=== PATIENT | male | born 1955 | race African-American/Black ===

== ENCOUNTER 2022-05-29 04:46 | Emergency (ER) | payer OTHER, MEDICAID ==
[~2022-05-29] VITALS: Ht 180.3 cm; Wt 79.8 kg
[2022-05-29 04:56] VITALS: BP 203/129
--- NOTE | 2022-05-29 05:03 | NUR ---
PT TAKEN TO ER BED 6
--- NOTE | 2022-05-29 05:39 | NUR ---
PT WALKED IN C/O 8/10 TESTICLE PAIN S/P HERNIA [id number]. PT ALSO REPORTS CONSTIPATION.
--- NOTE | 2022-05-29 06:17 | NUR ---
DR CHRISTIANSEN EXAMINING PT
[2022-05-29] MEDS ORDERED: MORPHINE SULFATE 4 MG/ML SYR IVP ONE (06:30)
--- NOTE | 2022-05-29 07:11 | NUR ---
REPORT GIVEN TO EUGENIO MOREL
--- NOTE | 2022-05-29 07:17 | NUR ---
PT DOING WELL, TESTICULAR PAIN 11/12, SR ON CM, O2 SAT 98%, SR UP TIMES 2. ELEV BP, HAS HX OF HTN, AWAITS DISPO
[2022-05-29 07:34] LABS: EOSINOPHILS # (AUTO) 0.1 K/uL (0-0.4); EOSINOPHILS % (AUTO) 1.4 % (0.0-4.0); HEMATOCRIT 38.2 % (36-52); HEMOGLOBIN 12.6 g/dL (12.0-18.0); LYMPHOCYTES % (AUTO) 21.7 % (20.5-51.1); MEAN CORPUSCULAR HEMOGLOBIN 29 pg (27-31); MEAN CORPUSCULAR HGB CONC 33 g/dL (33-37); MEAN CORPUSCULAR VOLUME 88.1 fL (80-94); MONOCYTES # (AUTO) 0.4 K/uL (0.8-1.0); MONOCYTES % (AUTO) 8.6 % (1.7-9.3); NEUTROPHILS # (AUTO) 3.3 K/uL (1.8-7.7); NEUTROPHILS % (AUTO) 67.3 % (42.2-75.2); PLATELET COUNT (AUTO) 252 K/uL (140-450); RED BLOOD CELL COUNT(AUTO) 4.33 MIL/uL (4.20-6.10); RED CELL DISTRIBUTION WIDTH 16.2 % (11.6-13.7); WHITE BLOOD COUNT (AUTO) 4.8 K/uL (4.8-10.8)
[2022-05-29 07:38] LABS: ALBUMIN 3.9 g/dL (3.4-5.0); ANION GAP 14.6 (8-16); CARBON DIOXIDE 29.1 mmol/L (21-32); POTASSIUM 3.7 mmol/L (3.5-5.1); TOTAL BILIRUBIN 0.7 mg/dL (0.0-1.0)
[2022-05-29 08:58] VITALS: BP 165/76
[2022-05-29] MEDS ORDERED: LID5T TP ×2 (09:00→09:03)
--- NOTE | 2022-05-29 09:00 | NUR ---
PT DISCHARGED HOME, AMBULATORY AND STEADY GAIT, IVSL DC'D, PT VERBALIZES INSTRUCTIONS GIVEN IN [facility], PT TO FOLLOW UP W PMD IN 2-3 DAYS, DENIES ANY FURTHER QUESTIONS
== END 2022-05-29 08:58 | disposition home or self-care (01) ==
LOC: MED 04:46
DX: K40.90 Unilateral inguinal hernia, without obstruction or gangrene, not specified as recurrent (principal); M84.48XA Pathological fracture, other site, initial encounter for fracture; R16.0 Hepatomegaly, not elsewhere classified; Z88.8 Allergy status to other drugs, medicaments and biological substances; Z72.89 Other problems related to lifestyle; Z98.890 Other specified postprocedural states
CPT/HCPCS: 36415; 74176; 80053; 81002; 83605; 85025; 96374; 99284; J2270

== ENCOUNTER 2022-08-16 17:06 | Emergency (ER) | payer OTHER, MEDICAID ==
[~2022-08-16] VITALS: Ht 180.3 cm; Wt 77.1 kg
[~2022-08-16 17:06] MED LIST: LID5T TP
[2022-08-16 18:02] VITALS: BP 172/113
[2022-08-16 19:43] LABS: BASOPHILS % (AUTO) 0.8 % (0.0-2.0); EOSINOPHILS % (AUTO) 0.4 % (0.0-4.0); HEMATOCRIT 40.6 % (36-52); HEMOGLOBIN 13.3 g/dL (12.0-18.0); LYMPHOCYTES # (AUTO) 1.1 K/uL (2.0-11.5); LYMPHOCYTES % (AUTO) 17.3 % (20.5-51.1); MEAN CORPUSCULAR HEMOGLOBIN 29 pg (27-31); MEAN CORPUSCULAR HGB CONC 33 g/dL (33-37); MEAN CORPUSCULAR VOLUME 88.6 fL (80-94); MONOCYTES # (AUTO) 0.4 K/uL (0.8-1.0); MONOCYTES % (AUTO) 6.1 % (1.7-9.3); NEUTROPHILS # (AUTO) 4.8 K/uL (1.8-7.7); NEUTROPHILS % (AUTO) 75.4 % (42.2-75.2); PLATELET COUNT (AUTO) 253 K/uL (140-450); RED BLOOD CELL COUNT(AUTO) 4.59 MIL/uL (4.20-6.10); RED CELL DISTRIBUTION WIDTH 15.6 % (11.6-13.7); WHITE BLOOD COUNT (AUTO) 6.4 K/uL (4.8-10.8)
[2022-08-16 20:00] LABS: ALBUMIN 4.3 g/dL (3.4-5.0); CARBON DIOXIDE 31.3 mmol/L (21-32); POTASSIUM 4.3 mmol/L (3.5-5.1); TOTAL BILIRUBIN 0.5 mg/dL (0.0-1.0)
--- NOTE | 2022-08-16 20:50 | NUR ---
PT TO 12
[2022-08-16 21:14] LABS: APPEARANCE,URINE CLEAR (CLEAR); BILIRUBIN,URINE NEGATIVE (NEGATIVE); BLOOD, URINE NEGATIVE (NEGATIVE); COLOR,URINE YELLOW (YELLOW); LEUKOCYTE ESTERASE ,URINE NEGATIVE (NEGATIVE); NITRITE, URINE NEGATIVE (NEGATIVE); PH,URINE 6.5 (5.0-9.0); UGLUCOSE NEGATIVE (NEGATIVE)
[2022-08-16] MEDS ORDERED: MORPHINE SULFATE 4 MG/ML SYR IM ONE (21:20)
--- NOTE | 2022-08-16 21:41 | NUR ---
Patient being evaluated by physician at bedside.
[2022-08-16] MEDS ORDERED: ACET-10509 PO (22:08)
[2022-08-16] MEDS ORDERED: IBUP-2218 PO (22:08)
--- NOTE | 2022-08-16 22:12 | NUR ---
Patient discharged with v/s stable. Written and verbal after care instructions given and explained. Patient alert, oriented and verbalized understanding of instructions. Ambulatory with steady gait. All questions addressed prior to discharge. ID band removed. Patient advised to follow up with PMD. Rx of TYLENOL EXTRA STRENGTH IBUPROFEN given.
== END 2022-08-16 22:15 | disposition home or self-care (01) ==
LOC: MED 17:06
DX: K40.90 Unilateral inguinal hernia, without obstruction or gangrene, not specified as recurrent (principal); R93.5 Abnormal findings on diagnostic imaging of other abdominal regions, including retroperitoneum; K76.89 Other specified diseases of liver; I10 Essential (primary) hypertension; Z79.899 Other long term (current) drug therapy; Z88.8 Allergy status to other drugs, medicaments and biological substances
CPT/HCPCS: 36415; 74176; 80053; 81003; 83690; 85025; 96372; 99284; J2270

== ENCOUNTER 2022-09-21 15:25 | Emergency (ER) | payer OTHER, MEDICAID ==
[~2022-09-21] VITALS: Ht 177.8 cm; Wt 68.0 kg
[~2022-09-21 15:25] MED LIST changes: +ACET-10509 PO; +IBUP-2218 PO
[2022-09-21 15:41] VITALS: BP 176/107
[2022-09-21 16:34] LABS: BASOPHILS % (AUTO) 0.7 % (0.0-2.0); EOSINOPHILS % (AUTO) 0.2 % (0.0-4.0); HEMATOCRIT 37.2 % (36-52); HEMOGLOBIN 12.5 g/dL (12.0-18.0); LYMPHOCYTES # (AUTO) 0.8 K/uL (2.0-11.5); LYMPHOCYTES % (AUTO) 12.7 % (20.5-51.1); MEAN CORPUSCULAR HEMOGLOBIN 29 pg (27-31); MEAN CORPUSCULAR HGB CONC 34 g/dL (33-37); MEAN CORPUSCULAR VOLUME 85.8 fL (80-94); MONOCYTES # (AUTO) 0.4 K/uL (0.8-1.0); MONOCYTES % (AUTO) 6.6 % (1.7-9.3); NEUTROPHILS # (AUTO) 5.3 K/uL (1.8-7.7); NEUTROPHILS % (AUTO) 79.8 % (42.2-75.2); PLATELET COUNT (AUTO) 231 K/uL (140-450); RED BLOOD CELL COUNT(AUTO) 4.34 MIL/uL (4.20-6.10); RED CELL DISTRIBUTION WIDTH 15.2 % (11.6-13.7); WHITE BLOOD COUNT (AUTO) 6.7 K/uL (4.8-10.8)
--- NOTE | 2022-09-21 16:40 | NUR ---
PATIENT AMBULATED TO BED 11 WITH STEADY/EVEN GAIT.
--- NOTE | 2022-09-21 16:44 | NUR ---
UA, covid/influenza swabs collected, walked to lab and handed to CPT Tamera.
--- NOTE | 2022-09-21 16:46 | NUR ---
67/M C/O BODY ACHES AND INTERMITTENT FEVERS X1 WEEK. PATIENT A&OX4, AMBULATORY, STATES RUNNY NOSE, COUGHING, SUBJECTIVE FEVER AND BODY ACHES 2-3 DAYS WITH GENERALIZED WEAKNESS. PT STATES SOB.DENIES TAKING MEDS FOR SYMPTOMS. DENIES RECENT SICK CONTACTS. BP IN TRIAGE 176/107, DENIES HEADACHES, DIZZINESS, VISION CHANGES. 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 BED LOCKED IN LOWEST POSITION, SIDE RAILS X 1. PMH: HTN MEDS: BENAZEPRIL ALLERGIES: DOXYCYCLINE
--- NOTE | 2022-09-21 16:58 | NUR ---
REPEAT BP 187/104. DR. CALZADA MADE AWARE.
[2022-09-21 17:00] LABS: APPEARANCE,URINE CLEAR (CLEAR); BILIRUBIN,URINE NEGATIVE (NEGATIVE); BLOOD, URINE 1+ (NEGATIVE); COLOR,URINE YELLOW (YELLOW); LEUKOCYTE ESTERASE ,URINE NEGATIVE (NEGATIVE); NITRITE, URINE NEGATIVE (NEGATIVE); PH,URINE 6.5 (5.0-9.0); UGLUCOSE NEGATIVE (NEGATIVE)
[2022-09-21 17:00] LABS: ALBUMIN 4.7 g/dL (3.4-5.0); ANION GAP 11.4 (8-16); CARBON DIOXIDE 29.6 mmol/L (21-32); TOTAL BILIRUBIN 0.8 mg/dL (0.0-1.0)
[2022-09-21 17:12] LABS: OTHER CASTS, URINE None Seen /LPF (None Seen); RBC,URINE 0-5 /HPF (0-5); WBC,URINE 0-5 /HPF (0-5)
[2022-09-21 19:10] VITALS: BP 176/96
[2022-09-21] MEDS ORDERED: ACET-10509 PO (19:20)
--- NOTE | 2022-09-21 19:23 | NUR ---
Report and transfer of care endorsed to ADRIEL John.
--- NOTE | 2022-09-21 19:32 | NUR ---
Patient discharged with v/s stable. Written and verbal after care instructions given and explained for Inguinal Hernia (Adult), Upper Respiratory Infection (Adult), Hypertension (Adult). Patient alert, oriented and verbalized understanding of instructions. Ambulatory with steady gait. All questions addressed prior to discharge. ID band removed. Patient advised to follow up with PMD. Rx of Acetaminophen given. Patient educated on indication of medication including possible reaction and side effects. Opportunity to ask questions provided and answered. Copies of RAD, Covid/influenza swabs, blood work, UA given to patient.
== END 2022-09-21 19:32 | disposition home or self-care (01) ==
LOC: MED 15:25
DX: J06.9 Acute upper respiratory infection, unspecified (principal); K40.90 Unilateral inguinal hernia, without obstruction or gangrene, not specified as recurrent; I10 Essential (primary) hypertension; Z20.822 Contact with and (suspected) exposure to COVID-19; Z79.899 Other long term (current) drug therapy; Z79.1 Long term (current) use of non-steroidal anti-inflammatories (NSAID); Z88.1 Allergy status to other antibiotic agents
CPT/HCPCS: 36415; 71045; 80053; 81001; 83880; 84484; 85025; 87426; 87804; 93005; 99285; Q0092

== ENCOUNTER 2023-02-07 13:12 | Emergency (ER) | payer OTHER, MEDICAID ==
[~2023-02-07] VITALS: Ht 180.3 cm; Wt 68.0 kg
[2023-02-07 13:14] VITALS: BP 174/92
--- NOTE | 2023-02-07 14:27 | NUR ---
68YO M C/O BRUNO NOT DRAINING AND HAS STRONG SMELL, MILD LT SIDE FLANK PAIN, BRUNO INCERTED 1 WK AGO IN [place], PT DENIES FEVER, CHILLS, FLU SYMPTOMS, CONGESTION, COUGH, N,V,D,C. SAFETY MAINTAINED. NAD. HX: HTN
[2023-02-07 14:43] LABS: APPEARANCE,URINE CLOUDY (CLEAR); BILIRUBIN,URINE NEGATIVE (NEGATIVE); BLOOD, URINE 3+ (NEGATIVE); COLOR,URINE BROWN (YELLOW); LEUKOCYTE ESTERASE ,URINE 1+ (NEGATIVE); NITRITE, URINE POSITIVE (NEGATIVE); UGLUCOSE NEGATIVE (NEGATIVE)
[2023-02-07 14:54] LABS: RBC,URINE 20-50 /HPF (0-5)
--- NOTE | 2023-02-07 14:57 | NUR ---
CATH TUBING CLOGGED, LEG BAG CHANGED, URINE DARK YELLOW
[2023-02-07] MEDS ORDERED: cefTRIAXone 500 MG in LIDOCAINE MPF 1% 1 ML IM ONE (15:00)
[2023-02-07] MEDS ORDERED: cefTRIAXone 500 MG VIAL ONE (15:33)
[2023-02-07] MEDS ORDERED: LIDOCAINE MPF 1% 5 ML ONE (15:33)
--- NOTE | 2023-02-07 16:10 | NUR ---
US AT BEDSIDE
[2023-02-07] MEDS ORDERED: CEPH500C16 PO (16:45)
[2023-02-07 17:01] VITALS: BP 168/86
== END 2023-02-07 17:01 | disposition home or self-care (01) ==
LOC: MED 13:12
DX: N12 Tubulo-interstitial nephritis, not specified as acute or chronic (principal); N40.0 Benign prostatic hyperplasia without lower urinary tract symptoms; I10 Essential (primary) hypertension; Z79.899 Other long term (current) drug therapy; Z88.1 Allergy status to other antibiotic agents
CPT/HCPCS: 76770; 81001; 87086; 96372; 99285; J0696; J2001; Q0092

== ENCOUNTER 2023-02-15 07:51 | Emergency (ER) | payer OTHER, MEDICAID ==
[~2023-02-15] VITALS: Ht 180.3 cm; Wt 83.5 kg
[~2023-02-15 07:51] MED LIST changes: +CEPH500C16 PO
[2023-02-15 08:01] VITALS: BP 170/108
[2023-02-15] MEDS ORDERED: ONDANSETRON 4 MG ODT PO ONE (08:35)
[2023-02-15] MEDS ORDERED: MORPHINE SULFATE 4 MG/ML SYR IM ONE (08:35)
--- NOTE | 2023-02-15 08:58 | NUR ---
PT C/O LOWER BACK PAIN, SHOOTING PAIN, PAIN MEDS GIVEN
[2023-02-15] MEDS ORDERED: ACET-10509 PO (09:15)
[2023-02-15] MEDS ORDERED: CYCL-711 PO (09:15)
[2023-02-15] MEDS ORDERED: IBUP-2213 PO (09:15)
[2023-02-15] MEDS ORDERED: ACET-5636 PO (09:15)
[2023-02-15] MEDS ORDERED: LID5T TP (09:15)
[2023-02-15 09:48] VITALS: BP 154/78
--- NOTE | 2023-02-15 09:55 | NUR ---
Patient discharged with v/s stable. Written and verbal after care instructions given and explained. Patient alert, oriented and verbalized understanding of instructions. Ambulatory with steady gait. All questions addressed prior to discharge. ID band removed. Patient advised to follow up with PMD. Rx of percocet,flexeril, motrin, lidoderm given. Patient educated on indication of medication including possible reaction and side effects. Opportunity to ask questions provided and answered.
== END 2023-02-15 09:55 | disposition home or self-care (01) ==
LOC: MED 07:51
DX: M54.50 Low back pain, unspecified (principal); N39.0 Urinary tract infection, site not specified; N40.0 Benign prostatic hyperplasia without lower urinary tract symptoms; I10 Essential (primary) hypertension; Z86.73 Personal history of transient ischemic attack (TIA), and cerebral infarction without residual deficits; Z79.899 Other long term (current) drug therapy
CPT/HCPCS: 96372; 99283; J2270; Q0162

== ENCOUNTER 2023-02-28 18:42 | Emergency (ER) | payer OTHER, MEDICAID ==
[~2023-02-28] VITALS: Ht 180.3 cm; Wt 63.5 kg
[~2023-02-28 18:42] MED LIST changes: +ACET-5636 PO; +CYCL-711 PO; +IBUP-2213 PO
[2023-02-28 19:19] VITALS: BP 162/102; PULSE 89; RESP 16; TEMP 98.2; O2SAT 100
--- NOTE | 2023-02-28 21:00 | NUR ---
Pt to bed 4
--- NOTE | 2023-02-28 21:05 | NUR ---
Dr. Bonner at bedside assessing patient.
--- NOTE | 2023-02-28 21:11 | NUR ---
Patient resting in bed, A/Ox4, chest rise and fall symmetrical, no s/s of distress, on monitor.
[2023-02-28] MEDS ORDERED: ACET-10509 PO (21:32)
[2023-02-28] MEDS ORDERED: PYR100 PO (21:32)
[2023-02-28] MEDS ORDERED: TAMS0.4C96 PO (21:32)
[2023-02-28] MEDS ORDERED: CEPH-588 PO (21:32)
[2023-02-28] MEDS ORDERED: TAMSULOSIN 0.4 MG CAP PO SCH (21:35)
[2023-02-28] MEDS ORDERED: cephALEXin 500 MG CAP PO ONE (21:35)
[2023-02-28 21:42] LABS: APPEARANCE,URINE CLOUDY (CLEAR); BILIRUBIN,URINE NEGATIVE (NEGATIVE); BLOOD, URINE 2+ (NEGATIVE); COLOR,URINE YELLOW (YELLOW); LEUKOCYTE ESTERASE ,URINE 3+ (NEGATIVE); NITRITE, URINE NEGATIVE (NEGATIVE); PH,URINE 6.5 (5.0-9.0); UGLUCOSE NEGATIVE (NEGATIVE)
--- NOTE | 2023-02-28 21:49 | NUR ---
16 Irish Moore catheter changed, utilizing serile technique. Patient tolerated procedure well, no c/o pain or s/s of distress.
[2023-02-28 21:57] VITALS: BP 159/89; PULSE 85; RESP 18; TEMP 98; O2SAT 100
== END 2023-02-28 21:57 | disposition home or self-care (01) ==
LOC: MED 18:42
DX: T83.098A Other mechanical complication of other urinary catheter, initial encounter (principal); I10 Essential (primary) hypertension; Z86.73 Personal history of transient ischemic attack (TIA), and cerebral infarction without residual deficits; Z79.899 Other long term (current) drug therapy
CPT/HCPCS: 51702; 81001; 87086; 99284

== ENCOUNTER 2023-03-21 09:40 | Emergency (ER) | payer OTHER, MEDICAID ==
[~2023-03-21] VITALS: Ht 177.8 cm; Wt 65.8 kg
[~2023-03-21 09:40] MED LIST changes: +CEPH-588 PO; +PYR100 PO; +SULF-59 PO; +TAMS0.4C96 PO
[2023-03-21 09:49] VITALS: BP 149/101; PULSE 95; RESP 18; TEMP 97.3; O2SAT 95
[2023-03-21] MEDS ORDERED: KETOROLAC 60 MG/2 ML VIAL IM ONE ×2 (12:40→13:47)
[2023-03-21] MEDS ORDERED: IBUP-2213 PO (13:02)
[2023-03-21] MEDS ORDERED: HYDR-5191 PO (13:02)
[2023-03-21] MEDS ORDERED: CIPR500T4 PO (13:02)
== END 2023-03-21 13:15 | disposition home or self-care (01) ==
LOC: MED 09:40
DX: N12 Tubulo-interstitial nephritis, not specified as acute or chronic (principal); M54.50 Low back pain, unspecified; I10 Essential (primary) hypertension; Z86.73 Personal history of transient ischemic attack (TIA), and cerebral infarction without residual deficits; Z79.899 Other long term (current) drug therapy
CPT/HCPCS: 81002; 96372; 99283; J1885; 81025